=== PATIENT | female | born 1990 | race Hispanic/Latino ===

== ENCOUNTER 2018-01-05 11:05 | Outpatient (CLI) | payer OTHER ==
[2018-01-05 11:47] LABS: Basophils % (Auto) 0.3 % (0.0-1.8); Eosinophils % (Auto) 1.1 % (0.0-4.3); Hematocrit 41.4 % (30.3-42.9); Hemoglobin 13.9 gm/dl (10.1-14.3); Lymphocytes # (Auto) 1.4 K/mm3 (1.2-5.4); Lymphocytes % (Auto) 33.3 % (13.4-35.0); Mean Corpuscular HGB Conc 34 % (30-34); Mean Corpuscular Hemoglobin 31 pg (28-32); Mean Corpuscular Volume 93 fl (79-97); Monocytes # (Auto) 0.2 K/mm3 (0.0-0.8); Monocytes % (Auto) 4.6 % (0.0-7.3); Platelet Count 230 K/mm3 (140-440); Red Blood Count 4.47 M/mm3 (3.65-5.03); Red Cell Distribution Width 13.4 % (13.2-15.2)
[2018-01-05 12:06] LABS: Erythrocyte Sedimentation Rate 5 mm/Hr (0-20)
[2018-01-06 22:52] LABS: ANA Screen, IFA Negative (Negative)
== END 2018-01-05 11:06 | disposition home or self-care (01) ==
LOC: LAB 11:05
PROVIDERS: ATTEND Psychiatry & Neurology Neurology
DX: I77.6 Arteritis, unspecified (principal)
CPT/HCPCS: 36415; 85025; 85652; 86038; 86140